=== PATIENT | female | born 1960 | race Caucasian/White ===

== ENCOUNTER 2021-11-26 00:52 | Day surgery (SDC) | payer BC, SELFPAY ==
[2021-11-05 15:01] VITALS: BMI 26.5
--- NOTE | 2021-11-25 14:18 | P.HP_ITS ---
History of Present Illness History of Present Illness Consent: Risks, benefits, and alternatives have been discussed and questions answered. Patient agrees to proceed with procedure. Chief complaint: neoplasm screening, hx of colon polyps, Narrative: Samantha Zamudio is a 61 year old female who is referred for colon cancer screening. she has a family history of colon cancer and had a tubular adenoma removed about 5 years ago. Stool is Hemoccult negative. Review of Systems Review of Systems: All systems reviewed & are unremarkable except as noted in HPI and below Hematologic/Lymphatic: Comments: She has been found to be anemic with a hemoglobin of 9.7. Iron was low earlier this year [facility] Past Medical History Medical History BMI 26.0-26.9,adult BMI 27.0-27.9,adult Encounter for wellness examination Screen for colon cancer Family History Family History Mother Carcinoma of colon Family history of malignant neoplasm of breast in first degree relative Family history of type 2 diabetes mellitus Patient's mother is Father No problems noted. Sibling No problems noted. Social History Social History Smoking status: Never smoker Second hand tobacco smoke exposure: No Alcohol intake: current Drinks per week: 6 Substance use: never Substance use type: does not use Living arrangements: with family Additional occupation/education comments: CPA Gender identity (if verbalized by the patient): Female Spiritual care concerns: No Meds Home Medications and Allergies Home Medications Medication Instructions Recorded Confirmed Type alendronate 70 mg tablet 70 mg PO WEEKLY #12 tablet 12/16/20 11/26/21 Rx losartan 50 mg tablet 50 mg PO DAILY #90 tablet 09/23/21 11/26/21 Rx ferrous sulfate 325 mg PO DAILY 11/05/21 11/26/21 History levothyroxine 100 mcg PO DAILY 11/05/21 11/05/21 History Allergies Allergy/AdvReac Type Severity Reaction Status Date / Time lisinopril AdvReac Mild Cough Verified 11/26/21 09:24 Exam Resp: Auscultation: clear to auscultation bilaterally Cardio: Rate: regular rate Rhythm: regular rhythm GI: GI Palp: Yes Soft to palpation and No Tenderness to palpation present (GI) Assessment and Plan Assessment and plan (1) Screen for colon cancer: Code(s): Z12.11 - Encounter for screening for malignant neoplasm of colon Status: Acute Assessment and Plan: Colonoscopy with possible biopsy or polypectomy or cautery or injection of substances.
[2021-11-26 09:24] VITALS: BP 145/83; PULSE 67; RESP 18; TEMP 37; O2SAT 99
[2021-11-26] MEDS: LACTATED RINGERS 1,000 ML 150 ML IV CONT (09:38)
--- NOTE | 2021-11-26 10:07 | WPDANESEPPF ---
Anes - Initial Pre Proc Eval Procedure: Operation Date: 11/26/21 10:30 Proposed Procedures p Screening Colonoscopy - Kade Figueroa MD Date/Time: 11/26/21 10:07 Surgeon: Kade Figueroa MD Pre Op Diagnosis: neoplasm screening, hx of colon polyps, Patient Data Age: 61 Gender: F Height: 1.78 m Weight: 88 kg Last Vital Signs Temp 98.6 F 11/26/21 09:24 Pulse 67 11/26/21 09:24 Resp 18 11/26/21 09:24 BP 145/83 H 11/26/21 09:24 Pulse Ox 99 11/26/21 09:24 Allergies Allergy/AdvReac Type Severity Reaction Status Date / Time lisinopril AdvReac Mild Cough Verified 11/26/21 09:24 Home Medications Medication Instructions Recorded Confirmed Type alendronate 70 mg tablet 70 mg PO WEEKLY #12 tablet 12/16/20 11/26/21 Rx losartan 50 mg tablet 50 mg PO DAILY #90 tablet 09/23/21 11/26/21 Rx ferrous sulfate 325 mg PO DAILY 11/05/21 11/26/21 History levothyroxine 100 mcg PO DAILY 11/05/21 11/05/21 History Patient hx anesthesia problems: none Family hx anesthesia problems: none Results Review: All pre-operative results and documents have been reviewed as part of the pre-operative evaluation. [facility] Past Medical History Medical History BMI 26.0-26.9,adult BMI 27.0-27.9,adult Encounter for wellness examination Screen for colon cancer Family History Family History Mother Carcinoma of colon Family history of malignant neoplasm of breast in first degree relative Family history of type 2 diabetes mellitus Patient's mother is Father No problems noted. Sibling No problems noted. Social History Social History Smoking status: Never smoker Second hand tobacco smoke exposure: No Alcohol intake: current Drinks per week: 6 Substance use: never Substance use type: does not use Living arrangements: with family Additional occupation/education comments: CPA Gender identity (if verbalized by the patient): Female Spiritual care concerns: No Anes - Eval Final PreProcedure Day of Procedure 11/26/21 10:07 Patient weight: overweight Heart: regular rate and rhythm Lungs: clear to auscultation Airway: Mallampati scale Last oral intake: >/= 8 hours ASA classification: II Emergent: no Anesthetic plan: proceed Anesthesia type and monitoring: general GIVS and standard monitoring Results Review: All pre-operative results and documents have been reviewed as part of the pre-operative evaluation. Informed Consent: The patient's anesthetic plan and its attendant risks and benefits were discussed with the patient/family/POA. Questions were solicited and answers provided to the satisfaction of the patient/family/POA.
[2021-11-26 10:35] VITALS: BP 110/68; PULSE 74; RESP 19; O2SAT 99
[2021-11-26 10:45] VITALS: BP 106/66; PULSE 74; RESP 19; O2SAT 99
[2021-11-26 10:55] VITALS: BP 126/89; PULSE 68; RESP 19; O2SAT 99
== END 2021-11-26 11:02 | disposition home or self-care (01) ==
PROVIDERS: PCP Family Medicine; Visit Provider Internal Medicine Gastroenterology
PROC: 0DJD8ZZ Inspection of Lower Intestinal Tract, Via Natural or Artificial Opening Endoscopic (ICD-10-PCS; CPT 45378; principal; 2021-11-26 10:30)
DX: Z12.11 Encounter for screening for malignant neoplasm of colon (principal); Z80.0 Family history of malignant neoplasm of digestive organs; Z86.010 Personal history of colon polyps
CPT/HCPCS: 45378; J2001; J2704; J7120